=== PATIENT | male | born 1940 | race Hispanic/Latino ===

== ENCOUNTER 2023-08-01 17:18 | Emergency (ER) | payer OTHER ==
--- NOTE | 2023-08-01 18:00 | RAD REPORT ---
EXAM DESCRIPTION: CT - Ct Stroke Brain Wo Cont - 08/01/2023 5:50 pm CLINICAL HISTORY: Right sided weakness COMPARISON: none TECHNIQUE: Computed axial tomography of the head was obtained. All CT scans are performed using dose optimization technique as appropriate and may include automated exposure control or mA/KV adjustment according to patient size. FINDINGS: An intracranial bleed is not seen . The ventricles are normal in caliber. No extra-axial fluid collection is noted. No significant hypodensity within the brain noted. Fluid within the sinuses/ mastoids is not seen. IMPRESSION: No acute intracranial abnormality is seen. If patient's symptoms persist MRI of the bra in would be recommended Renetta Lofton of the emergency room was notified at 5:54 p.m. August 01, 2023
[2023-08-01 18:13] LABS: Absolute Eosinophils 0.3 K/uL (0-0.5); Absolute Lymphocytes (CBC) 2.5 K/uL (0.7-4.9); Absolute Monocytes 0.4 K/uL (0.1-1.3); Absolute Neutrophil 3.9 K/uL (1.8-8.0); Basophils % 0.7 % (0-1.3); Eosinophils % 4.4 % (0-4.4); Hematocrit 39.6 % (39.6-49.0); Hemoglobin 13.5 g/dL (13.6-17.9); Lymphocytes % 34.4 % (15.3-44.8); MCH 31.8 pg (27.0-35.0); MCHC 34.2 g/dL (32.0-36.0); Neutrophils % 54.5 % (41.7-73.7); Nucleated Red Blood Cells % 0.2 % (0-0); Platelets 265 thou/uL (152-406); RBC Red Blood Cell Count 4.26 M/uL (4.33-5.43); Red Cell Distribution Width 13.5 % (12.1-15.2)
[2023-08-01 18:24] LABS: Albumin 2.9 g/dL (3.4-5.0); Albumin/Globulin Ratio 0.7 (1.1-1.8); Anion Gap 4.9 mEq/L (5.0-15.0); Bilirubin Direct 0.2 mg/dL (0-0.2); Bilirubin Indirect, Calculated 0.4 mg/dL (0.2-0.8); Bilirubin Total 0.6 mg/dL (0.2-1.0); Globulin 4.1 g/dL (2.3-3.5); Potassium 3.9 mEq/L (3.5-5.1); Troponin High Sensitivity 5.7 pg/mL (<58.9)
--- NOTE | 2023-08-01 18:34 | EDPHYS ---
Physician Documentation [facility] Name: Ector Nava Age: 82 yrs Sex: Male : 1940 Arrival Date: 08/01/2023 Time: 17:18 Bed 5 Private MD: ED Physician Michelle La HPI: 07/31 18:00 This 82 yrs old Male presents to ER via Ambulatory with complaints of High sp3 Blood Pressure, Weakness. 18:00 82-year-old male with history of stage II/III kidney disease, diabetes and hypertension sp3 sent from Dr. Shen's office for off and on right lower extremity weakness and right upper extremity weakness now resolved. Symptoms started 3 to 4 days ago with last episode yesterday morning. None today. Patient denies headache, ongoing weakness, facial droop, memory loss, speech changes, headache, rash, chest pain, shortness of breath, abdominal pain, nausea, vomiting, diarrhea, or any other signs or symptoms on ROS at this time. Patient has no current symptoms and feels like he is at his baseline.. Historical: - PMHx: 17:38 diabetes mellitus; Hypertensive disorder; mb9 - Immunization history:: Adult Immunizations unknown. - Infectious Disease History:: Denies. - Social history:: Smoking status: Patient denies any tobacco usage or history of. ROS: 18:02 Constitutional: Negative for fever, chills, and weight loss, Eyes: Negative for injury, sp3 pain, redness, and discharge, ENT: Negative for injury, pain, and discharge, Neck: Negative for injury, pain, and swelling, Cardiovascular: Negative for chest pain, palpitations, and edema, Respiratory: Negative for shortness of breath, cough, wheezing, and pleuritic chest pain, Abdomen/GI: Negative for abdominal pain, nausea, vomiting, diarrhea, and constipation, Back: Negative for injury and pain, : Negative for injury, bleeding, discharge, and swelling, MS/Extremity: Negative for injury and deformity, Skin: Negative for injury, rash, and discoloration, Psych: Negative for depression, anxiety, suicide ideation, homicidal ideation, and hallucinations, Allergy/Immunology: Negative for hives, rash, and allergies, Endocrine: Negative for neck swelling, polydipsia, polyuria, polyphagia, and marked weight changes, Hematologic/Lymphatic: Negative for swollen nodes, abnormal bleeding, and unusual bruising, 18:02 All other systems are negative, Exam: 18:02 Constitutional: This is a well developed, well nourished patient who is awake, alert, sp3 and in no acute distress. Head/Face: Normocephalic, atraumatic. Eyes: Pupils equal round and reactive to light, extra-ocular motions intact. Lids and lashes normal. Conjunctiva and sclera are non-icteric and not injected. Cornea within normal limits. Periorbital areas with no swelling, redness, or edema. ENT: Nares patent. No nasal discharge, no septal abnormalities noted. External auditory canals are clear. Oropharynx with no redness, swelling, or masses, exudates, or evidence of obstruction, uvula midline. Mucous membranes moist. Neck: Trachea midline, no thyromegaly or masses palpated, and no cervical lymphadenopathy. Supple, full range of motion without nuchal rigidity, or vertebral point tenderness. No Meningismus. Chest/axilla: Normal chest wall appearance and motion. Nontender with no deformity. No lesions are appreciated. Cardiovascular: Regular rate and rhythm with a normal S1 and S2. No gallops, murmurs, or rubs. Normal PMI, no JVD. No pulse deficits. Respiratory: Lungs have equal breath sounds bilaterally, clear to auscultation and percussion. No rales, rhonchi or wheezes noted. No increased work of breathing, no retractions or nasal flaring. Abdomen/GI: Soft, non-tender, with normal bowel sounds. No distension or tympany. No guarding or rebound. No evidence of tenderness throughout. Back: No spinal tenderness. No costovertebral tenderness. Full range of motion. Skin: Warm, dry with normal turgor. Normal color with no rashes, no lesions, and no evidence of cellulitis. MS/ Extremity: Pulses equal, no cyanosis. Neurovascular intact. Full, normal range of motion. Neuro: Awake and alert, GCS 15, oriented to person, place, time, and situation. Cranial nerves II-XII grossly intact. Motor strength 5/5 in all extremities. Sensory grossly intact. Cerebellar exam normal. Normal gait. Psych: Awake, alert, with orientation to person, place and time. Behavior, mood, and affect are within normal limits. Vital Signs: 17:36 BP 180 / 109; Pulse 72; Resp 16; Temp 97.9; Pulse Ox 96% ; Weight 81.65 kg; Height 5 db ft. 8 in. ; 17:55 BP 178 / 88; Pulse 69; Resp 18; Pulse Ox 96% on R/A; ld1 18:41 BP 155 / 79; Pulse 80; Resp 18; Pulse Ox 100% on R/A; mb9 17:36 Body Mass Index 27.37 (81.65 kg, 172.72 cm) db NIH Stroke Scale Scores: 17:55 NIHSS Score: 0 ld1 MDM: 17:38 Patient medically screened. sp3 18:03 Data reviewed: vital signs, nurses notes, old medical records, lab test result(s), EKG, sp3 radiologic studies. ED course: 82-year-old male sent by PCP for an unresolved right-sided weakness. CT scan of the head is negative. Laboratory values are pending. Patient has a completely normal neurological exam with NIH stroke scale 0. If workup is negative and patient remains at his baseline, we will discharge with follow-up to neurology as needed. Patient's blood pressure was 180/109 and we will monitor however this is a known hypertensive with BP control challenges.. 18:32 ED course: Blood pressures improved. Patient continues to have NIH stroke scale of 0. sp3 We will discharge patient home with outpatient neurology follow-up and PCP follow-up. I discussed pros and cons of inpatient versus outpatient and patient would like to go home and follow the outpatient route. He states he will return if he gets any further symptoms.. 07/31 17:45 Order name: Basic Metabolic Panel; Complete Time: 18:29 3 07/31 17:45 Order name: CBC with Diff; Complete Time: 18:29 3 07/31 17:45 Order name: High Sensitivity Troponin; Complete Time: 18:29 3 07/31 17:45 Order name: Protime (+inr); Complete Time: 18:29 3 07/31 17:45 Order name: Ptt, Activated; Complete Time: 18:29 3 07/31 17:45 Order name: Hepatic Function; Complete Time: 18:29 3 07/31 17:45 Order name: CT Stroke Brain w/o Contrast; Complete Time: 18:00 3 07/31 17:45 Order name: EKG; Complete Time: 17:46 sp3 07/31 17:45 Order name: Cardiac monitoring; Complete Time: 18:03 sp3 07/31 17:45 Order name: EKG - Nurse/Tech; Complete Time: 18:03 sp3 07/31 17:45 Order name: IV Saline Lock; Complete Time: 18:03 sp3 07/31 17:45 Order name: Labs collected and sent; Complete Time: 18:03 sp3 07/31 17:45 Order name: NPO; Complete Time: 18:03 sp3 07/31 17:45 Order name: O2 Sat Monitoring; Complete Time: 18:03 sp3 07/31 17:45 Order name: Stroke Swallow Screen; Complete Time: 18:03 sp3 Administered Medications: No medications were administered Disposition Summary: 08/01/23 18:33 Discharge Ordered Notes: Location: Home sp3 Condition: Stable sp3 Diagnosis - TIA/resolved weakness sp3 Followup: sp3 - With: Private Physician - When: Upon discharge from the Emergency Department - Reason: Continuance of care Followup: sp3 - With: Chidi Marvin MD - When: Upon discharge from the Emergency Department - Reason: Continuance of care Discharge Instructions: - Discharge Summary Sheet sp3 - Transient Ischemic Attack sp3 Forms: - Medication Reconciliation Form sp3 - Antibiotic Education sp3 - Prescription Opioid Use sp3 - Patient Portal Instructions sp3 - Leadership Thank You Letter sp3 NIH Stroke Scale - NIH Stroke Score Date: 08/01/2023 Time: 17:55 Total Score = 0 10. Dysarthria (speech clarity - read or repeat words) - 0(Normal) 11. Extinction and Inattention (visual/tactile/auditory/spatial/personal) - 0(No abnormality) 1a. Level of Consciousness (LOC) - 0(Alert) 1b. Level of Consciousness (LOC) (Month \T\ Age) - 0(Both) 1c. LOC Commands (Open \T\ Closes Eyes/Documentation Consultant) - 0(Both) 2. Best Gaze (Lateral Gaze Paresis) - 0(Normal) 3. Visual Field Loss - 0(No visual loss) 4. Facial Palsy - 0(Normal) 5a. Left Arm: Motor (10-second hold) - 0(No drift) 5b. Right Arm: Motor (10-second hold) - 0(No drift) 6a. Left Leg: Motor (5-second hold - always test supine) - 0(No drift) 6b. Right Leg: Motor (5-second hold - always test supine) - 0(No drift) 7. Limb Ataxia (finger/nose \T\ heel/rodriguez - test with eyes open) - 0(Absent) 8. Sensory Loss (pinprick arms/legs/face) - 0(Normal) 9. Best Language: Aphasia (description/naming/reading) - 0(No aphasia) Initials: ld1 Signatures: Dispatcher [employer] EDMS Michelle La MD MD sp3 Jamila Lo, RN RN db Janie Mcintosh RN RN mb9 Corrections: (The following items were deleted from the chart) 17:46 17:46 BASIC METABOLIC PANEL+C.LAB.BRZ ordered. EDMS EDMS 17:46 17:46 CBC+H.LAB.BRZ ordered. EDMS EDMS 17:46 17:46 Troponin High Sensitivity+C.LAB.BRZ ordered. EDMS EDMS 17:46 17:46 PROTIME (+INR)+COAG.LAB.BRZ ordered. EDMS EDMS 17:46 17:46 PTT, ACTIVATED+COAG.LAB.BRZ ordered. EDMS EDMS 17:46 17:46 HEPATIC FUNCTION+C.LAB.BRZ ordered. EDUT EDMS 18:02 18:00 82-year-old male with history of diabetes and hypertension sent from Dr. stephen Shen's office for off and on right lower extremity weakness and right upper extremity weakness now resolved. Symptoms started 3 to 4 days ago with last episode yesterday morning. None today. Patient denies headache, ongoing weakness, facial droop, memory loss, speech changes, headache, rash, chest pain, shortness of breath, Maximo pain, nausea, vomiting, diarrhea, or any other signs or symptoms on ROS at this time.. [email or web address] 18:36 18:32 ED course: Blood pressures improved. Patient continues to have NIH stroke sp3 scale of 0. We will discharge patient home with outpatient neurology follow-up and PCP follow-up.. [email or web address]
--- NOTE | 2023-08-01 18:34 | ER ---
Nurse's Notes [facility] Name: Ector Nava Age: 82 yrs Sex: Male : 1940 Arrival Date: 08/01/2023 Time: 17:18 Bed 5 Private MD: Diagnosis: TIA/resolved weakness Presentation: 07/31 17:36 Chief complaint: Patient states: STATES WOKE UP SUNDAY MORNING WITH RIGHT LEG AND db RIGHT ARM HEAVINESS AND WEAKNESS. STATES WENT AWAY LATER. FELT HEADACHE YESTERDAY THAT WENT AWAY. TODAY BP WAS HIGH AT PCP APPT. PCP SENT PATIENT TO ED FOR EVALUATION. PT PCP DR. GROVE SPOKE TO DR. LA ED PHYSICIAN. SENT FOR R/O STROKE. Coronavirus screen: Client denies travel out of the [place] in the last 14 days. At this time, the client does not indicate any symptoms associated with coronavirus-19. Ebola Screen: Patient negative for fever greater than or equal to 101.5 degrees Fahrenheit, and additional compatible Ebola Virus Disease symptoms Patient denies exposure to infectious person. Patient denies travel to an Ebola-affected area in the 21 days before illness onset. No symptoms or risks identified at this time. Initial Sepsis Screen: Does the patient meet any 2 criteria? No. Patient's initial sepsis screen is negative. Does the patient have a suspected source of infection? No. Patient's initial sepsis screen is negative. Risk Assessment: Do you want to hurt yourself or someone else? Patient reports no desire to harm self or others. Onset of symptoms was August 01, 2023. 17:36 Method Of Arrival: Ambulatory db 17:36 Acuity: REANNA 2 db Triage Assessment: 17:36 General: Appears in no apparent distress. comfortable, Behavior is calm, cooperative. db Pain: Denies pain. Neuro: Barney Agitation-Sedation Scale (RASS): Level of Consciousness is awake, alert, obeys commands, Oriented to person, place, time, situation, Appropriate for age Speech is normal, Facial symmetry appears normal. Stroke Activation: Symptom onset > 6 hours Physician: ED Attending; Name: ; Notified At: ; Arrived At: Physician: Mid-Level Provider; Name: ; Notified At: ; Arrived At: Physician: [not used]; Name: ; Notified At: ; Arrived At: Physician: [not used]; Name: ; Notified At: ; Arrived At: Physician: [not used]; Name: ; Notified At: ; Arrived At: Historical: - PMHx: 17:38 diabetes mellitus; Hypertensive disorder; mb9 - Immunization history:: Adult Immunizations unknown. - Infectious Disease History:: Denies. - Social history:: Smoking status: Patient denies any tobacco usage or history of. Screenin:50 [place] Swallow Protocol Brief Cognitive Screen What is your name? Normal, Where are you ld1 right now? Normal, What year is it? Normal. Oral Mechanism Examination Facial Symmetry: Normal, Motion: Normal, Lip Closure: Normal, Oral Mechanism Result: Normal. 3 oz Water Swallow Challenge: Pt able to drink all water without stopping, coughing, choking or throat clearing: Yes Result: PASS Notified: Michelle La MD. 17:50 [facility] ED Fall Risk Assessment (Adult) History of falling in the last 3 months, ld1 including since admission No falls in past 3 months (0 pts). Abuse screen: Denies threats or abuse. Denies injuries from another. Nutritional screening: No deficits noted. Tuberculosis screening: No symptoms or risk factors identified. Assessment: 17:55 VAN Scoring: Arm Drift: Patients demonstrates NO arm weakness. Patient is VAN Negative. ld1 Visual Disturbance: No visual disturbance noted. Aphasia: No aphasia noted. Neglect: No neglect noted. [place] Swallow Protocol Brief Cognitive Screen What is your name? Normal, Where are you right now? Normal, What year is it? Normal. Oral Mechanism Examination Facial Symmetry: Normal, Motion: Normal, Lip Closure: Normal, Oral Mechanism Result: Normal. 3 oz Water Swallow Challenge: Pt able to drink all water without stopping, coughing, choking or throat clearing: Yes Result: PASS Notified: Michelle La MD. 17:55 General: Appears in no apparent distress. comfortable, Behavior is calm, cooperative, ld1 appropriate for age. Pain: Denies pain. Neuro: Level of Consciousness is awake, alert, obeys commands, Oriented to person, place, time, situation. Cardiovascular: Capillary refill < 3 seconds Patient's skin is warm and dry. Respiratory: Airway is patent Respiratory effort is even, unlabored. GI: Abdomen is round non-distended. : No signs and/or symptoms were reported regarding the genitourinary system. EENT: No signs and/or symptoms were reported regarding the EENT system. Derm: No signs and/or symptoms reported regarding the dermatologic system. Musculoskeletal: No signs and/or symptoms reported regarding the musculoskeletal system. 18:41 Reassessment: Patient appears in no apparent distress at this time. No changes from mb9 previously documented assessment. Patient and/or family updated on plan of care and expected duration. Pain level reassessed. Vital Signs: 17:36 BP 180 / 109; Pulse 72; Resp 16; Temp 97.9; Pulse Ox 96% ; Weight 81.65 kg; Height 5 db ft. 8 in. ; 17:55 BP 178 / 88; Pulse 69; Resp 18; Pulse Ox 96% on R/A; ld1 18:41 BP 155 / 79; Pulse 80; Resp 18; Pulse Ox 100% on R/A; mb9 17:36 Body Mass Index 27.37 (81.65 kg, 172.72 cm) db NIH Stroke Scale Scores: 17:55 NIHSS Score: 0 ld1 ED Course: 17:24 Patient arrived in ED. im 17:25 Michelle La MD is Attending Physician. sp3 17:38 Janie Mcintosh RN is Primary Nurse. mb9 17:38 Arm band placed on. mb9 17:40 Triage completed. db 17:52 CT Stroke Brain w/o Contrast In Process Unspecified. EDMS 17:55 Patient has correct armband on for positive identification. Bed in low position. Call ld1 light in reach. Side rails up X2. pvc monitor on. Pulse ox on. NIBP on. Door closed. Noise minimized. Warm blanket given. 17:55 No provider procedures requiring assistance completed. ld1 18:02 Inserted saline lock: 20 gauge in right antecubital area, using aseptic technique. zm Blood collected. 18:02 Initial lab(s) drawn, by sd, sent to lab. zm 18:02 EKG done, by ED staff, reviewed by Michelle La MD. zm 18:03 Basic Metabolic Panel Sent. zm 18:03 CBC with Diff Sent. zm 18:03 High Sensitivity Troponin Sent. zm 18:03 Protime (+inr) Sent. zm 18:03 Ptt, Activated Sent. zm 18:03 Hepatic Function Sent. zm 18:06 Mel Arias, JARAD is Primary Nurse. ld1 18:33 Chidi Marvin MD is Referral Physician. sp3 18:41 IV discontinued, intact, bleeding controlled, No redness/swelling at site. Pressure mb9 dressing applied. Administered Medications: No medications were administered Medication: 17:55 VIS not applicable for this client. ld1 Outcome: 18:33 Discharge ordered by . sp3 18:41 Discharged to home ambulatory, with family, mb9 18:41 Condition: stable 18:41 Discharge instructions given to patient, family, Instructed on discharge instructions, follow up and referral plans. Demonstrated understanding of instructions, follow-up care, 18:42 Patient left the ED. mb9 NIH Stroke Scale - NIH Stroke Score Date: 08/01/2023 Time: 17:55 Total Score = 0 10. Dysarthria (speech clarity - read or repeat words) - 0(Normal) 11. Extinction and Inattention (visual/tactile/auditory/spatial/personal) - 0(No abnormality) 1a. Level of Consciousness (LOC) - 0(Alert) 1b. Level of Consciousness (LOC) (Month \T\ Age) - 0(Both) 1c. LOC Commands (Open \T\ Closes Eyes/Fluoroscope Operator) - 0(Both) 2. Best Gaze (Lateral Gaze Paresis) - 0(Normal) 3. Visual Field Loss - 0(No visual loss) 4. Facial Palsy - 0(Normal) 5a. Left Arm: Motor (10-second hold) - 0(No drift) 5b. Right Arm: Motor (10-second hold) - 0(No drift) 6a. Left Leg: Motor (5-second hold - always test supine) - 0(No drift) 6b. Right Leg: Motor (5-second hold - always test supine) - 0(No drift) 7. Limb Ataxia (finger/nose \T\ heel/rodriguez - test with eyes open) - 0(Absent) 8. Sensory Loss (pinprick arms/legs/face) - 0(Normal) 9. Best Language: Aphasia (description/naming/reading) - 0(No aphasia) Initials: ld1 Signatures: Dispatcher [employer] EDMS Mel Arias RN RN ld1 Michelle La MD MD sp3 Cherelle Shah Danielle, RN RN Janie Rodriges RN RN mb9 Keesha Portillo
[2023-08-01 18:58] VITALS: BP 155/79; TEMP 97.9; O2SAT 100
--- NOTE | 2023-08-03 16:56 | EKG ---
Test Date: 2023-08-01 Test Time: 17:59:39 [employer] Assistant: Reginald OJEDA MEASUREMENT RESULTS: Intervals: Rate: 74 HI: 192 QRSD: 98 QT: 404 QTc: 448 [place]: P: 41 HI: 192 QRS: -9 T: 41 INTERPRETIVE STATEMENTS: Sinus rhythm with fusion complexes Otherwise normal ECG Compared to ECG 04/13/2023 08:29:38 Fusion complex(es) now present Ventricular premature complex(es) no longer present Electronically Signed On 08-03-23 16:50:00 CDT by Dong Chew
== END 2023-08-01 18:42 | disposition home or self-care (01) ==
LOC: SUPCPDRO 17:18 → ER 17:18
DX: G45.9 Transient cerebral ischemic attack, unspecified (principal); I10 Essential (primary) hypertension; E11.9 Type 2 diabetes mellitus without complications
CPT/HCPCS: 36415; 70450; 80048; 80076; 84484; 85025; 85610; 85730; 93005; 99285